=== PATIENT | male | born 1975 | race Caucasian/White ===

== ENCOUNTER 2020-09-30 15:23 | Outpatient (CLI) | payer BC, SELFPAY ==
--- NOTE | 2020-09-30 15:45 | USCV_ITS ---
Shivani Calderon Age: 45 Gender: M : 1975 Exam Date: 09/30/2020 15:26 Ordering Phys: Francisco Bolanos MD ([email or web address]) Technologist: Kirill Cross Exam Location: [facility] – [place] Indication: MVP BP: 140 / 85 HR: 43 Rhythm: Sinus Technical Quality: Good MEASUREMENTS (Male / Female) Normal Values 2D ECHO LV Diastolic Diameter PLAX 5.5 cm 4.2 - 5.9 / 3.9 - 5.3 cm LV Systolic Diameter PLAX 4.2 cm IVS Diastolic Thickness 1.2 cm 0.6 - 1.0 / 0.6 - 0.9 cm IVS Systolic Thickness 1.1 cm LVPW Diastolic Thickness 1.5 cm 0.6 - 1.0 / 0.6 - 0.9 cm LVPW Systolic Thickness 1.6 cm LVOT Diameter 2.2 cm LV Ejection Fraction 2D Teich 46.3 % LV Ejection Fraction MOD 2C 61.2 % LV Ejection Fraction 2C AL 60.4 % LA Diameter 5.8 cm LA Width 6.0 cm LA Height 5.3 cm RA Width 3.4 cm RA Height 3.7 cm Aorta at Sinotubular Diameter 2.8 cm M-MODE LV Diastolic Diameter MM 8.1 cm 4.2 - 5.9 / 3.9 - 5.3 cm LV Systolic Diameter MM 5.2 cm LV Ejection Fraction MM Teich 62.7 % IVS Diastolic Thickness MM 1.3 cm 0.6 - 1.0 / 0.6 - 0.9 cm IVS Systolic Thickness MM 1.7 cm LVPW Diastolic Thickness MM 1.7 cm 0.6 - 1.0 / 0.6 - 0.9 cm LVPW Systolic Thickness MM 1.9 cm RV Diastolic Diameter MM 2.5 cm Aortic Annulus Diameter 3.7 cm LA Ao Ratio MM 1.7 MV E Point Septal Separation 0.9 cm DOPPLER AV Peak Velocity 93.0 cm/s LVOT Peak Velocity 79.3 cm/s AV Area Cont Eq vti 3.5 cm squared AV Area Cont Eq pk 3.1 cm squared MV E' Velocity 19.0 cm/s TR Peak Velocity 286.0 cm/s TR Peak Gradient 32.7 mmHg TV Peak E Velocity 100.0 cm/s Right Atrial Pressure 3.0 mmHg Pulmonary Artery Systolic Pressu 35.7 mmHg FINDINGS Left Ventricle Normal left ventricular size and systolic function, EF 60 %. No regional wall motion abnormalities. Right Ventricle The right ventricle is normal in size and function. Right Atrium The right atrium is normal in size. Left Atrium Moderately increased left atrial size. In the atrial septum bulging to the right side Mitral Valve ppears to have some bileaflet prolapse. Possibly severe mitral regurgitation Aortic Valve No gross abnormalities noted . Tricuspid Valve No gross abnormalities noted . Pulmonic Valve Pulmonic valve not well visualized. Pericardium Normal pericardium without effusion. Aorta Normal ascending aorta dimension. CONCLUSIONS Normal left ventricular size and systolic function, EF 60 %. No regional wall motion abnormalities. Possibly severe mitral regurgitation Moderately increased left atrial size. Appears to have bileaflet prolapse The inter-atrial septum bulging to the right side. There is no pericardial effusion. There are no intracardiac masses. No previous study is available for comparison. Revised copy of the test results from 09/30/2020 Dr Francisco Bolanos MD [facility] (Electronically Signed) Final Date: 30 September 2020 18:00 Amended: 01 October 2020 13:15 C
== END 2020-09-30 15:24 | disposition home or self-care (01) ==
LOC: US 15:25
PROVIDERS: PCP Nurse Practitioner Family; Visit Provider Internal Medicine Cardiovascular Disease
DX: I34.1 Nonrheumatic mitral (valve) prolapse (principal)
CPT/HCPCS: 93306

== ENCOUNTER 2020-10-25 06:08 | Day surgery (SDC) | payer BC, SELFPAY ==
--- NOTE | 2020-10-25 06:18 | USCV_ITS ---
Shivani Calderon Age: 45 Gender: M : 1975 Exam Date: 10/25/2020 08:03 Ordering Phys: Francisco Bolanos MD ([email or web address]) Technologist: Kirill Cross Exam Location: [facility] – [place] Indication: MR BP: / HR: Rhythm: Sinus Technical Quality: MEASUREMENTS (Male / Female) Normal Values Medications IV propofol administered by the anesthesia service . No gross wall motion of normalities Complications None. Proc. Components The patient was brought to the RANDEE examination room in a fasting state after obtaining an informed consent. RANDEE was performed at multiple levels. The patient tolerated the procedure well and there were no complications. FINDINGS Left Ventricle Normal left ventricular size and systolic function, EF 65%.no regional wall motion abnormalities. Right Ventricle Normal right ventricular size and systolic function. Right Atrium Normal right atrial size. Left Atrium Moderately increased left atrial size. LA Appendage Is of normal size and contractility IA Septum Slightly bulging to the right side. There is no patent foramen ovale or ASD Mitral Valve Severe prolapse of the P1 and P2 and P3 scallops. Posterior leaflet appears to be flailing in some views. There was moderate prolapse of the A1 A2 scallops. Severe eccentric mitral regurgitation, with the irrigating jet directed anteriorly and encircling the left atrium. There was reversal of flow in the pulmonic vein. Aortic Valve Minimally thickened Tricuspid Valve Minimally thickened with no significant prolapse or regurgitation Pulmonic Valve Appears to be of normal morphology no significant stenotic lesions Pericardium No pericardial effusion. Aorta Normal aortic annulus size. CONCLUSIONS Severe mitral valve regurgitation Severe prolapse of the posterior mitral leaflet with some features of flailing. The P1, P2 and P3 scallops appears to be prolapsing. There is moderate prolapse of the A1 A2 scallops Moderately increased left atrial size. The interatrial septum appears to be bulging to the right side. No evidence of PFO or ASD by color-flow Doppler examination. Normal LV size and ejection fraction of 55%. No gross wall motion abnormalities noted. No intracardiac masses. No significant stenotic or regurgitant lesions in the other valves Dr Frnacisco Bolanos MD [facility] (Electronically Signed) Final Date: 25 October 2020 15:41 S
[2020-10-25 06:26] VITALS: BP 138/80; PULSE 65; RESP 16; TEMP 36.9; O2SAT 97; BMI 30.5
[2020-10-25 06:47] LABS: SARS Covid-2 Antigen Negative (Negative)
--- NOTE | 2020-10-25 06:53 | ANES.PREANE2 ---
Pre-Anesthetic Assessment Pre-Anesthetic Assessment: Height/Weight: Height 1.75 m Weight 93.894 kg Temp Pulse Resp BP Pulse Ox 98.4 F 65 16 138/80 97 10/25/20 06:26 10/25/20 06:26 10/25/20 06:26 10/25/20 06:26 10/25/20 06:26 Preop Diagnosis: Mitral regurg Proposed Procedure: Operation Date: 10/25/20 07:15 Proposed Procedures p RANDEE (Transesophageal Echocardiogram)(Not Applicable) - Francisco Bolanos MD Was Beta Xavi taken within 24 hours: Yes Last Intake: 22:00 Social: Social History: Tobacco (chew tobacco for couple min ) Packs per day: chew tobacco at 0400 couple min before stop Exam: Pre-Anes Outpt Exam: alert, oriented x 3, clear to auscultation bilaterally and regular rate & rhythm Airway: Submandibular: WNL Cervical ROM: WNL MP: 1 Dentition: Full Pulmonary: Pulmonary: Asthma (as child) and None reported CV/HEM: CV/HEM: HTN and Murmur : : None reported Hepatic: Hepatic: None reported GI: GI: GERD (occ food related) Metabolic: Metabolic: None reported Musc/skel: Musc/skel: None reported Neuropsych: Neuropsych: None reported Anesthetic Plan: ASA status: 3 Anesthesia: MAC Risk of > 500 ml blood loss (7ml/kg in children): No PFSH Anesthesia PFSH: Medical History Heart valve disease 08/05/2020 Patient has significant cardiac history that he has not followed up. Patient was seen by Dr. Bolanos in 2009 and Echo was done. Findings at that time included: Bi-leaflet prolapse of Mitral Valve Moderate Mitral regurgitation Mild Tricuspid and Pulmonic regurgitation Normal LV size with EF of 65% Mild bi-atrial enlargement Patient did not followup with care. Mitral regurgitation Mitral valve prolapse Umbilical hernia Surgical History History of appendectomy Family History Denies family history of Anesthesia complication Bleeding disorder Social History Smoking and tobacco status: never smoked Second hand smoke exposure: No Alcohol intake: never Adopted: No Caregiver/support person: Yes Lives independently: Yes Household members: spouse Housing: House Marital status: Current occupational status: employed Pets and animals: No History of recent travel: No Data Anesthesia Other Labs: Laboratory Results - last 48 hr 10/25/20 06:22 SARS-CoV-2 Ag (Rapid) Negative Cardiac Studies: No Data to Display
--- NOTE | 2020-10-25 08:05 | W.PM.OPSUD ---
Surgery/Procedure H&P Update DATE OF PROCEDURE: October 25, 2020 DATE H&P PERFORMED: 10/25/20 H&P UPDATE INFORMATION: I have reviewed H&P completed within last 30 days, I have examined patient prior to procedure and No changes to prior documentation PREOP DIAGNOSIS: Mitral regurg PLANNED PROCEDURE: Operation Date: 10/25/20 07:15 Proposed Procedures p RANDEE (Transesophageal Echocardiogram)(Not Applicable) - Francisco Bolanos MD
--- NOTE | 2020-10-25 08:06 | PM.HP ---
Providers/Chief Complaint Primary Care Provider: KEN Chen Chief Complaint: RANDEE History of Present Illness Shivani Calderon is a 45 year old male with a history of mitral valve prolapse and mitral regurgitation, had a recent echocardiogram. The echocardiogram revealed possibly severe mitral regurgitation. Moderately dilated left atrium. Appears to have bileaflet prolapse. The interatrial septum was bulging to the right side. A RANDEE was recommended to better evaluate the mitral valve prolapse and the mitral regurgitation. Review of Systems Narrative: CONSTITUTIONAL: No fever or chills. EYES: No blurring of vision or other visual disturbances lately. ENT: No hoarseness of voice, auditory disturbances or sore throat. CARDIOVASCULAR: As mentioned above. RESPIRATORY: No significant cough. GASTROINTESTINAL: No hematemesis or melena. GENITOURINARY: No dysuria or hematuria. INTEGUMENTARY: No skin rashes or history of skin cancer. NEURO: No transient ischemic attacks or amaurosis. PSYCHIATRIC: No history of psychosis or major depression. HEMATOLOGIC: No bleeding disorders or significant anemia. ENDOCRINE: No history of polyuria or polydipsia. MUSCULOSKELETAL: No recent joint pain or swelling. ALLERGY/IMMUNOLOGY: As mentioned above. Medications/Allergies Home Medications Medication Instructions Recorded Confirmed Last Taken Type calcium carbonate 600 mg calcium 600 mg PO DAILY 08/05/20 10/25/20 10/24/20 18:00 History (1,500 mg) tablet metoprolol tartrate 25 mg tablet 25 mg PO BID 30 Days #60 tab 09/04/20 10/25/20 10/24/20 18:00 Rx Allergies Allergy/AdvReac Type Severity Reaction Status Date / Time No Known Allergies Allergy Verified 08/30/20 09:20 PFSH Acute PFSH: Medical History Heart valve disease 08/05/2020 Patient has significant cardiac history that he has not followed up. Patient was seen by Dr. Bolanos in 2009 and Echo was done. Findings at that time included: Bi-leaflet prolapse of Mitral Valve Moderate Mitral regurgitation Mild Tricuspid and Pulmonic regurgitation Normal LV size with EF of 65% Mild bi-atrial enlargement Patient did not followup with care. Mitral regurgitation Mitral valve prolapse Umbilical hernia Surgical History History of appendectomy Family History Denies family history of Anesthesia complication Bleeding disorder Social History Smoking and tobacco status: never smoked Second hand smoke exposure: No Alcohol intake: never Adopted: No Caregiver/support person: Yes Lives independently: Yes Household members: spouse Housing: House Marital status: Current occupational status: employed Pets and animals: No History of recent travel: No Vitals/I&O/Wt Last Vital Signs Temp 98.4 F 10/25/20 06:26 Pulse 65 10/25/20 06:26 Resp 16 10/25/20 06:26 BP 138/80 10/25/20 06:26 Pulse Ox 97 10/25/20 06:26 Weight last 48 hrs Weight 207 lb Physical Exam Narrative: EXAM NARRATIVE: GENERAL: The patient is alert and oriented times three. Not in any acute distress. HEENT: No significant pallor, icterus or lymphadenopathy.Oral cavity: There are no mucous membrane lesions. NECK: Trachea appears to be central. No masses noted. No JVD or thyromegaly appreciated. RESPIRATORY: Chest is symmetrical. No intercostals muscle retraction or any accessory muscle activation. There is no chest wall tenderness. Breath sounds are heard bilaterally. No rales or rhonchi heard. No evidence of any consolidation. BREASTS: Deferred. HEART: The heart sounds are normal. No S3 or S4. Late systolic murmur grade 4/6 in the mitral area. No diastolic murmurs.. No pericardial rub ABDOMEN: No vessel pulsations or distention. No tenderness. No organomegaly appreciated. Bowel sounds are normally heard. : Deferred. RECTAL: Deferred. LYMPHATIC: No lymphadenopathy noted in the neck or groin. EXTREMITIES: No edema or cyanosis. No clubbing. Peripheral pulses are palpated in fairly good volume and amplitude MUSCULOSKELETAL: No acute joint deformities or swelling SKIN: There are no significant rashes or ecchymosis NEUROPSYCHIATRIC: The patient is alert and oriented x3. Appears to be in a good mood. No tremors or rigidity noted. A&P Assessment and plan (1) Mitral regurgitation: For better evaluation of the mitral valve and the regurgitation, a RANDEE would be appropriate. This was discussed the patient in detail. The risk of aspiration, soft tissue injury, esophageal/gastric perforation and other concomitant complications were explained in detail which is understood well and consented to proceed. Status: Acute Qualifiers: Cardiac valve disease etiology: nonrheumatic Qualified Code(s): I34.0 - Nonrheumatic mitral (valve) insufficiency (2) Elevated blood pressure reading: May continue on the current medications. The blood pressure is fairly in the normal range at home. Status: Acute (3) Mitral valve prolapse: Patient seems to have bileaflet prolapse based on the transthoracic echocardiogram. After reviewing the RANDEE, further recommendations will be made. Status: Acute Additional A&P Information It may require mitral valve intervention. Based on the RANDEE findings, further recommendations will be made. Attestations Medical Necessity Statement*: Patient be discharged home today after the procedure Coding Level of Care Code Acute Immunologist for [facility] Fwd Diagnoses Mitral regurgitation I34.0 Cardiac valve disease etiology: nonrheumatic Elevated blood pressure reading R03.0 Mitral valve prolapse I34.1
[2020-10-25 08:45] VITALS: BP 118/69; PULSE 75; RESP 16; O2SAT 100
--- NOTE | 2020-10-25 08:51 | ANE.PACU2 ---
Inpatient post-anesthesia follow up: Airway intact: Yes Vital signs: Temperature 98.4 F Pulse Rate 65 Respiratory Rate 16 Blood Pressure 138/80 Pulse Oximetry 97 Oxygen Delivery Me thod Room Air Oxygen Flow Rate Fraction of Inspir ed Oxygen Hydration adequate: Yes Nausea and vomiting: No Pain level: 1 Mental status: Baseline
[2020-10-25 09:00] VITALS: BP 117/61; PULSE 72; RESP 16; O2SAT 97
[2020-10-25 09:15] VITALS: BP 116/66; PULSE 63; RESP 18; O2SAT 99
[2020-10-25 09:30] VITALS: BP 120/64; PULSE 66; RESP 18; O2SAT 99
[2020-10-25 09:40] VITALS: BP 118/66; PULSE 64; RESP 18; O2SAT 99
== END 2020-10-25 09:50 | disposition home or self-care (01) ==
PROVIDERS: PCP Nurse Practitioner Family; Visit Provider Internal Medicine Cardiovascular Disease
PROC: (CPT 93312; principal; 2020-10-25 07:15)
DX: I34.0 Nonrheumatic mitral (valve) insufficiency (principal); I34.1 Nonrheumatic mitral (valve) prolapse; I10 Essential (primary) hypertension; E03.0 Congenital hypothyroidism with diffuse goiter; K21.9 Gastro-esophageal reflux disease without esophagitis
CPT/HCPCS: 12345; 36415; 87426; 93312; 93320; 93325; J2704; J7030

== ENCOUNTER → 2021-01-17 09:45 | Outpatient (BNVA) | payer BC, SELFPAY | PROVIDERS: PCP Nurse Practitioner Family; Visit Provider Nurse Practitioner Family | DX: I38 Endocarditis, valve unspecified (principal) | CPT/HCPCS: 85610 ==

== ENCOUNTER → 2021-01-22 12:58 | Outpatient (BNVA) | payer BC, SELFPAY | PROVIDERS: PCP Nurse Practitioner Family; Visit Provider Family Medicine | DX: I38 Endocarditis, valve unspecified (principal) | CPT/HCPCS: 85610 ==

== ENCOUNTER → 2021-01-29 08:20 | Outpatient (BNVA) | payer BC, SELFPAY | PROVIDERS: PCP Nurse Practitioner Family; Visit Provider Nurse Practitioner Family | DX: I38 Endocarditis, valve unspecified (principal) | CPT/HCPCS: 85610 ==

== ENCOUNTER → 2021-02-04 08:11 | Outpatient (BNVA) | payer BC, SELFPAY | PROVIDERS: PCP Nurse Practitioner Family; Visit Provider Nurse Practitioner Family | DX: I38 Endocarditis, valve unspecified (principal) | CPT/HCPCS: 85610 ==

== ENCOUNTER → 2021-02-12 08:19 | Outpatient (BNVA) | payer BC, SELFPAY | PROVIDERS: PCP Nurse Practitioner Family; Visit Provider Nurse Practitioner Family | DX: I38 Endocarditis, valve unspecified (principal) | CPT/HCPCS: 85610 ==

== ENCOUNTER → 2021-02-26 08:07 | Outpatient (BNVA) | payer BC, SELFPAY | PROVIDERS: PCP Nurse Practitioner Family; Visit Provider Nurse Practitioner Family | DX: I38 Endocarditis, valve unspecified (principal) | CPT/HCPCS: 85610 ==

== ENCOUNTER → 2021-04-09 08:09 | Outpatient (BNVA) | payer BC, SELFPAY | PROVIDERS: PCP Nurse Practitioner Family; Visit Provider Internal Medicine Cardiovascular Disease | DX: I34.1 Nonrheumatic mitral (valve) prolapse (principal); I48.91 Unspecified atrial fibrillation | CPT/HCPCS: 85610 ==

== ENCOUNTER → 2021-04-16 08:22 | Outpatient (BNVA) | payer BC, SELFPAY | PROVIDERS: PCP Nurse Practitioner Family; Visit Provider Internal Medicine Cardiovascular Disease | DX: I48.19 Other persistent atrial fibrillation (principal); D69.9 Hemorrhagic condition, unspecified | CPT/HCPCS: 85610 ==

== ENCOUNTER → 2021-04-24 08:32 | Outpatient (BNVA) | payer BC, SELFPAY | PROVIDERS: PCP Nurse Practitioner Family; Visit Provider Nurse Practitioner Family | DX: I48.19 Other persistent atrial fibrillation (principal) | CPT/HCPCS: 85610 ==

== ENCOUNTER → 2021-05-01 16:47 | Outpatient (BNVA) | payer BC, SELFPAY | PROVIDERS: PCP Nurse Practitioner Family; Visit Provider Nurse Practitioner Family | DX: I48.19 Other persistent atrial fibrillation (principal) | CPT/HCPCS: 85610 ==

== ENCOUNTER → 2021-05-21 14:41 | Outpatient (BNVA) | payer BC, SELFPAY | PROVIDERS: PCP Nurse Practitioner Family; Visit Provider Internal Medicine Cardiovascular Disease | DX: I10 Essential (primary) hypertension (principal); R07.9 Chest pain, unspecified; I48.19 Other persistent atrial fibrillation; R03.0 Elevated blood-pressure reading, without diagnosis of hypertension; Z79.01 Long term (current) use of anticoagulants | CPT/HCPCS: 85610 ==

== ENCOUNTER → 2021-12-04 16:23 | Outpatient (BNVA) | payer BC, SELFPAY | PROVIDERS: PCP Nurse Practitioner Family; Visit Provider Internal Medicine Cardiovascular Disease | DX: I48.19 Other persistent atrial fibrillation (principal); I10 Essential (primary) hypertension; I38 Endocarditis, valve unspecified; I34.1 Nonrheumatic mitral (valve) prolapse; R03.0 Elevated blood-pressure reading, without diagnosis of hypertension; G89.18 Other acute postprocedural pain; K21.9 Gastro-esophageal reflux disease without esophagitis | CPT/HCPCS: 85610 ==

== ENCOUNTER → 2021-12-19 10:08 | Outpatient (BNVA) | payer BC, SELFPAY | PROVIDERS: PCP Nurse Practitioner Family; Visit Provider Internal Medicine Cardiovascular Disease | DX: I48.91 Unspecified atrial fibrillation (principal) | CPT/HCPCS: 80053; 80061; 81003; 82306; 82728; 83036; 83550; 83921; 84443; 85025; 85610; 87086; G0103 ==

== ENCOUNTER → 2021-12-22 16:35 | Outpatient (BNVA) | payer BC, SELFPAY | PROVIDERS: PCP Nurse Practitioner Family; Visit Provider Internal Medicine Cardiovascular Disease | DX: I48.91 Unspecified atrial fibrillation (principal) | CPT/HCPCS: 85610 ==

== ENCOUNTER → 2021-12-30 16:40 | Outpatient (BNVA) | payer BC, SELFPAY | PROVIDERS: PCP Nurse Practitioner Family; Visit Provider Nurse Practitioner Family | DX: I48.91 Unspecified atrial fibrillation (principal) | CPT/HCPCS: 85610 ==

== ENCOUNTER → 2021-12-31 09:52 | Outpatient (BNVA) | payer BC, SELFPAY | PROVIDERS: PCP Nurse Practitioner Family; Visit Provider Nurse Practitioner Family | DX: N39.0 Urinary tract infection, site not specified (principal); I48.91 Unspecified atrial fibrillation; R31.9 Hematuria, unspecified; Z79.01 Long term (current) use of anticoagulants | CPT/HCPCS: 81003 ==

== ENCOUNTER → 2022-01-21 09:22 | Outpatient (BNVA) | payer BC, SELFPAY | PROVIDERS: PCP Nurse Practitioner Family; Visit Provider Internal Medicine Cardiovascular Disease | DX: Z79.01 Long term (current) use of anticoagulants (principal) | CPT/HCPCS: 85610 ==

== ENCOUNTER → 2022-06-11 16:40 | Outpatient (BNVA) | payer BC, SELFPAY | PROVIDERS: PCP Nurse Practitioner Family; Visit Provider Internal Medicine Cardiovascular Disease | DX: Z79.01 Long term (current) use of anticoagulants (principal) | CPT/HCPCS: 85610 ==

== ENCOUNTER → 2022-06-12 10:15 | Outpatient (BNVA) | payer BC, SELFPAY | PROVIDERS: PCP Nurse Practitioner Family; Visit Provider Nurse Practitioner Family | DX: R10.11 Right upper quadrant pain (principal); R31.9 Hematuria, unspecified | CPT/HCPCS: 81000; 88112 ==

== ENCOUNTER → 2022-06-18 16:40 | Outpatient (BNVA) | payer BC, SELFPAY | PROVIDERS: PCP Nurse Practitioner Family; Visit Provider Internal Medicine Cardiovascular Disease | DX: Z79.01 Long term (current) use of anticoagulants (principal) | CPT/HCPCS: 85610 ==

== ENCOUNTER 2022-07-13 11:25 | Outpatient (CLI) | payer BC, SELFPAY ==
[2022-07-13] MEDS: iohexol 350 mg/mL 100 mL Btl IV (12:30)
--- NOTE | 2022-07-13 13:00 | CT_ITS ---
WS: [id number] CT ABDOMEN PELVIS TECHNIQUE: Contrast-enhanced CT of the abdomen and pelvis with coronal and sagittal reformatted image s. CLINICAL INFORMATION: R10.11 - Right upper quadrant pain COMPARISON: None. DLP: 1290.[address] scans at [facility] use at least one of these dose optimization techniques: automated e xposure control; mA and/or kV adjustment per patient size (includes targeted exams where dose is matc hed to clinical indication); or iterative reconstruction. FINDINGS: Mild diffuse fatty infiltration liver. 2 small hepatic cysts or hemangiomas RIGHT hepatic lobe measur ing 7-9 mm. Normal portal vein and splenic vein. Cardiomegaly. Sternotomy. Lung bases are well aerate d. Normal spleen. Normal GE junction. Mild fatty atrophy of the pancreas. Normal caliber abdominal ao rta. Celiac and SMA are patent. Adrenal glands are normal. Normal renal parenchymal enhancement. No h ydronephrosis. Obstructing calculus at the RIGHT UVJ measuring 4.7 mm. Mild RIGHT ureterectasis. Mild RIGHT hydronephrosis. Normal renal parenchymal enhancement bilaterally . Prostate calcification. Prominent prostate measuring 4.0 CM. Normal sigmoid colon. No evidence of hig h-grade small or large bowel obstruction. Fat-containing umbilical hernia. No periaortic or pelvic ly mphadenopathy. CT/CT abdomen pelvis w con* [id number] IMPRESSION: 1. 4.7 mm RIGHT UVJ calculus with mild RIGHT ureterectasis. Minimal RIGHT hydr onephrosis. 2. Normal renal parenchymal enhancement bilaterally. 3. Prominent prostate measuring 4.0 CM. Recommend correlation PSA. 4. No other acute findings.
== END 2022-07-13 11:26 | disposition home or self-care (01) ==
LOC: RAD 11:26
PROVIDERS: PCP Nurse Practitioner Family; Visit Provider Nurse Practitioner Family
DX: R31.9 Hematuria, unspecified (principal); N13.4 Hydroureter; N40.0 Benign prostatic hyperplasia without lower urinary tract symptoms
CPT/HCPCS: 74177

== ENCOUNTER → 2022-07-15 16:51 | Outpatient (BNVA) | payer BC, SELFPAY | PROVIDERS: PCP Nurse Practitioner Family; Visit Provider Internal Medicine Cardiovascular Disease | DX: Z79.01 Long term (current) use of anticoagulants (principal) | CPT/HCPCS: 85610 ==

== ENCOUNTER 2022-07-16 13:00 | Outpatient (CLI) | payer BC, SELFPAY ==
--- NOTE | 2022-07-16 13:06 | XR_ITS ---
WS: [id number] KUB, AP view, 07/16/2022 Clinical Data: STONES Comparison: None. Findings: No abnormal intraabdominal masses or calcifications are seen. There is no dilatated small bowel or ev idence of obstruction. There is a 0.6 cm calcification in the region of the right ureterovesical junction which could repres ent a calculus. There is moderate fecal material in the descending colon. XR/XR KUB [id number] Impression: Possible right ureteral vesicle junction calculus.
== END 2022-07-16 13:01 | disposition home or self-care (01) ==
LOC: RAD 13:02
PROVIDERS: PCP Nurse Practitioner Family; Visit Provider Urology
DX: N20.1 Calculus of ureter (principal)
CPT/HCPCS: 74018; 81003

== ENCOUNTER 2022-07-22 08:25 | Day surgery (SDC) | payer BC, SELFPAY ==
[2022-07-20 08:26] VITALS: BMI 31.0
--- NOTE | 2022-07-20 08:43 | P.ANESASSM_ITS ---
Pre-Anesthetic Assessment Height/Weight: Height 1.75 m Weight 95.254 kg Preop Diagnosis: Mitral regurg Operation Date: 07/22/22 09:35 Proposed Procedures p CYSTOSCOPY RIGHT RETROGRADE URETEROSCOPY LASER STENT [id number] MODIFIER 26(Not Applicable) - Elias Palacios MD s Retrograde Pyelogram(Right) - MD seun Costello Ureteroscopy(Right) - MD seun Costello Laser Lithotripsy(Right) - Elias Palacios MD s Ureteral Stent Removal(Right) - Elias Palacios MD Familial anesthetic complications: vasovagal syncope with IV insertion Social No alcohol and No tobacco Exam alert, oriented x 3, clear to auscultation bilaterally and regular rate & rhythm Airway Mallampati: Class III Dentition: full Pulmonary None reported CV/HEM Atrial Fibrillation and Hypertension mitral valve repair (1.5 years ago), no SOB or Chest pain None reported Hepatic None reported GI None reported Metabolic None reported Musc/skel None reported Neuropsych None reported Anesthetic Plan ASA status: 3 Anesthesia: General Risk of > 500 ml blood loss (7ml/kg in children): No Medications/Allergies Home Medications Medication Instructions Recorded Confirmed Last Taken Type aspirin 81 mg tablet,delayed 81 mg PO DAILY 02/27/21 07/20/22 Unknown History release (Adult Aspirin Regimen) warfarin 2.5 mg tablet 2.5 mg PO DAILY 30 days #30 tabs 04/07/21 07/20/22 Unknown Rx famotidine 20 mg tablet 20 mg PO DAILY 05/21/21 07/20/22 Unknown History amiodarone 200 mg tablet See Rx Instructions .Route 01/21/22 07/20/22 Unknown Rx .COMPLEX #90 tabs losartan 25 mg tablet See Rx Instructions .Route 01/21/22 07/20/22 Unknown Rx .COMPLEX #90 tabs warfarin 5 mg tablet See Rx Instructions .Route 01/21/22 07/20/22 Unknown Rx .COMPLEX #90 tabs metoprolol tartrate 25 mg tablet 12.5 mg PO BID 06/04/22 07/20/22 Unknown History Allergies Allergy/AdvReac Type Severity Reaction Status Date / Time No Known Allergies Allergy Verified 07/16/22 14:31 [facility] Anesthesia Medical History Acute UTI Chronic anticoagulation GERD (gastroesophageal reflux disease) Heart valve disease 08/05/2020 Patient has significant cardiac history that he has not followed up. Patient was seen by Dr. Bolanos in 2009 and Echo was done. Findings at that time included: Bi-leaflet prolapse of Mitral Valve Moderate Mitral regurgitation Mild Tricuspid and Pulmonic regurgitation Normal LV size with EF of 65% Mild bi-atrial enlargement Patient did not followup with care. Mitral regurgitation Mitral valve prolapse Post-op pain Umbilical hernia Surgical History H/O mitral valve repair History of appendectomy Family History Father Diabetes Grandmother Diabetes Family/Other Stroke Mother Healthy adult Denies family history of CAD (coronary artery disease) Clotting disorder Dementia Chronic kidney disease (CKD) Suicide Anesthesia complication Bleeding disorder Lung disease Cancer Social History Smoking and tobacco status: never smoked Second hand smoke exposure: No Alcohol intake: current Alcohol intake frequency: holidays/special occasions only Adopted: No Caregiver/support person: Yes Lives independently: Yes Household members: spouse Housing: House Marital status: Current occupational status: employed Pets and animals: No History of recent travel: No Data Anesthesia Cardiac Studies: Echocardiogram Ultrasound 09/30/20 Transesophageal Echocardiogram 10/25/20
[2022-07-20 08:45] LABS: Basophils % 0.6 %; Eosinophils # 0.1 10^3/uL (0.0-0.8); Eosinophils % 2.1 %; Hematocrit 42.1 % (42.0-52.0); Hemoglobin 13.9 g/dL (11.7-16.6); Lymphocytes # 1.5 10^3/uL (0.8-4.8); Lymphocytes % 27.9 %; Mean Corpuscular Hemoglobin 30.3 pg (28.0-34.0); Mean Corpuscular Volume 91.9 fl (80-94); Mean Platelet Volume 11.1 fL (7.4-10.4); Monocytes # 0.3 10^3/uL (0.2-0.9); Monocytes % 5.4 %; Neutrophils # 3.31 10^3/uL (1.8-7.7); Neutrophils % 63.8 %; Nucleated Red Blood Cells % 0 %; Platelet Count 202 10^3/cmm (130-400); Red Blood Count 4.58 10^6/uL (4.1-5.3); Red Cell Distribution Width 12.2 % (12.1-15.1); White Blood Count 5.2 10^3/uL (4.0-10.0)
--- NOTE | 2022-07-20 08:53 | P.ANESASSM_ITS ---
Pre-Anesthetic Assessment Height/Weight: Height 1.75 m Weight 95.254 kg Preop Diagnosis: Mitral regurg Operation Date: 07/22/22 09:35 Proposed Procedures p CYSTOSCOPY RIGHT RETROGRADE URETEROSCOPY LASER STENT [id number] MODIFIER 26(Not Applicable) - Elias Palacios MD s Retrograde Pyelogram(Right) - MD seun Costello Ureteroscopy(Right) - MD seun Costello Laser Lithotripsy(Right) - Elias Palacios MD s Ureteral Stent Removal(Right) - Elias Palacios MD Medications/Allergies Home Medications Medication Instructions Recorded Confirmed Last Taken Type aspirin 81 mg tablet,delayed 81 mg PO DAILY 02/27/21 07/20/22 Unknown History release (Adult Aspirin Regimen) warfarin 2.5 mg tablet 2.5 mg PO DAILY 30 days #30 tabs 04/07/21 07/20/22 Unknown Rx famotidine 20 mg tablet 20 mg PO DAILY 05/21/21 07/20/22 Unknown History amiodarone 200 mg tablet See Rx Instructions .Route 01/21/22 07/20/22 Unknown Rx .COMPLEX #90 tabs losartan 25 mg tablet See Rx Instructions .Route 01/21/22 07/20/22 Unknown Rx .COMPLEX #90 tabs warfarin 5 mg tablet See Rx Instructions .Route 01/21/22 07/20/22 Unknown Rx .COMPLEX #90 tabs metoprolol tartrate 25 mg tablet 12.5 mg PO BID 06/04/22 07/20/22 Unknown History Allergies Allergy/AdvReac Type Severity Reaction Status Date / Time No Known Allergies Allergy Verified 07/16/22 14:31 [facility] Anesthesia Medical History Acute UTI Chronic anticoagulation GERD (gastroesophageal reflux disease) Heart valve disease 08/05/2020 Patient has significant cardiac history that he has not followed up. Patient was seen by Dr. Bolanos in 2009 and Echo was done. Findings at that time included: Bi-leaflet prolapse of Mitral Valve Moderate Mitral regurgitation Mild Tricuspid and Pulmonic regurgitation Normal LV size with EF of 65% Mild bi-atrial enlargement Patient did not followup with care. Mitral regurgitation Mitral valve prolapse Post-op pain Umbilical hernia Surgical History H/O mitral valve repair History of appendectomy Family History Father Diabetes Grandmother Diabetes Family/Other Stroke Mother Healthy adult Denies family history of CAD (coronary artery disease) Clotting disorder Dementia Chronic kidney disease (CKD) Suicide Anesthesia complication Bleeding disorder Lung disease Cancer Social History Smoking and tobacco status: never smoked Second hand smoke exposure: No Alcohol intake: current Alcohol intake frequency: holidays/special occasions only Adopted: No Caregiver/support person: Yes Lives independently: Yes Household members: spouse Housing: House Marital status: Current occupational status: employed Pets and animals: No History of recent travel: No Data Anesthesia : 07/20/22 08:30 07/20/22 08:30 Short CBC 07/20/22 Range/Units 08:30 WBC 5.2 (4.0-10.0) 10^3/uL Hgb 13.9 (11.7-16.6) g/dL Hct 42.1 (42.0-52.0) % MCV 91.9 (80-94) fl Plt Count 202 (130-400) 10^3/cmm Neut % (Auto) 63.8 % Neut # (Auto) 3.31 (1.8-7.7) 10^3/uL Cardiac Studies: Echocardiogram Ultrasound 09/30/20 Transesophageal Echocardiogram 10/25/20
[2022-07-20 09:09] LABS: Anion Gap 11.5 (5-19); Blood Urea Nitrogen 20 mg/dL (6-20); Calcium 9.6 mg/dL (8.5-10.5); Carbon Dioxide 29 mmol/L (22-29); Chloride 105 mmol/L (98-107); Glomerular Filtration Rate 64.9 mL/min (90-130); Glucose 99 mg/dL (65-115); Osmolality Calculated 295 mOsm/kg (285-295); Potassium 4.5 mmol/L (3.5-5.1); Sodium 141 mmol/L (136-145)
--- NOTE | 2022-07-22 08:27 | XR_ITS ---
WS: [id number] Exam: XR KUB [id number] Date/Time of Exam: 07/22/2022 8:29 AM Reason For Exam: stone Comparison 07/16/2022. No bowel obstruction or free air. Previously noted right pelvic calcification is difficult to identif y on today's exam. No sign of organ enlargement. Normal bowel gas pattern. Regional bony elements are intact. Opaque debris in the large bowel. XR/XR KUB [id number] IMPRESSION: 1. No acute abdominal finding. 2. Previously described right pelvic calcification thought to represent a urete ral stone is difficult to identify on today's exam. It may be obscured by stool in the rectum.
--- NOTE | 2022-07-22 09:31 | PM.MISC ---
Miscellaneous Note Purpose of Documentation: Documentation for cancellation of surgery Note: Last night the patient voided a stone out. I requested that he still have a KUB this morning to confirm that the entire stone was gone. I reviewed his KUB and in fact the stone is gone and what he described his passing was equivalent to what was seen on the previous KUB. Surgery was canceled. Follow-up in clinic in 6 months with a KUB for routine stone surveillance
--- NOTE | 2022-07-22 09:34 | SUR.PREOP ---
patients surgery has been cancelled due to passing his stone.
== END 2022-07-22 10:26 | disposition home or self-care (01) ==
LOC: RAD 08:26 → OPS 08:40
PROVIDERS: Anesthesiology; PCP Nurse Practitioner Family; Visit Provider Urology
PROC: 0TJB8ZZ Inspection of Bladder, Via Natural or Artificial Opening Endoscopic (ICD-10-PCS; CPT 52000; principal; 2022-07-22 09:25)
PROC: (CPT 74420; 2022-07-22 09:25)
PROC: 0TJ98ZZ Inspection of Ureter, Via Natural or Artificial Opening Endoscopic (ICD-10-PCS; CPT 52351; 2022-07-22 09:25)
PROC: (CPT 52310; 2022-07-22 09:25)
DX: N20.0 Calculus of kidney (principal); I10 Essential (primary) hypertension; I48.91 Unspecified atrial fibrillation; K21.9 Gastro-esophageal reflux disease without esophagitis; Z79.82 Long term (current) use of aspirin; Z79.01 Long term (current) use of anticoagulants; Z53.9 Procedure and treatment not carried out, unspecified reason
CPT/HCPCS: 74018; 80048; 85025

== ENCOUNTER → 2023-07-06 08:59 | Outpatient (BNVA) | payer BC, SELFPAY | PROVIDERS: PCP Nurse Practitioner Family; Visit Provider Nurse Practitioner Family | DX: I48.91 Unspecified atrial fibrillation (principal) | CPT/HCPCS: 85610 ==

== ENCOUNTER → 2024-01-04 09:05 | Outpatient (BNVA) | payer BC, SELFPAY | PROVIDERS: PCP Nurse Practitioner Family; Visit Provider Nurse Practitioner Family | DX: I10 Essential (primary) hypertension (principal); Z79.01 Long term (current) use of anticoagulants; R10.11 Right upper quadrant pain; M62.08 Separation of muscle (nontraumatic), other site; K81.9 Cholecystitis, unspecified; Z79.899 Other long term (current) drug therapy | CPT/HCPCS: 80053; 80061; 81003; 83036; 84439; 84443; 84481; 85025 ==

== ENCOUNTER 2024-01-07 07:16 | Outpatient (CLI) | payer BC, SELFPAY ==
--- NOTE | 2024-01-07 07:30 | US_ITS ---
WS: [id number] Complete ABDOMINAL ULTRASOUND HISTORY: K81.9 - Cholecystitis, unspecified COMPARISON: None available. Technically difficult evaluation of the abdominal structures due to body habitus. Liver: 15.8 cm in length. Normal size with mild coarse echotexture. No mass identified. Portal Vein: Normal hepatopetal flow with monophasic waveform. Gallbladder: Abnormal gallbladder. Stone filled gallbladder with shadowing. Gallbladder wall 3 mm. CBD: 0.3 cm Pancreas: Completely obscured by bowel gas. Right kidney: 11.8 cm x 4.8 x 5.9 cm. Cortex:1.0 cm. Normal size and echogenicity. No hydronephrosis or mass. Left kidney: 11.0 cm x 4.5 cm x 5.2 cm. Cortex: 1.1 cm. Normal size and echogenicity. No hydronephrosis or mass. Spleen: Normal. Aorta and IVC: Unremarkable abdominal aorta and IVC. Impression: 1. Cholelithiasis. Stone filled gallbladder. No acute cholecystitis. 2. Normal bile duct. 3. Mild hepatic steatosis. 4. No renal obstruction.
== END 2024-01-07 07:17 | disposition home or self-care (01) ==
LOC: RAD 07:16
PROVIDERS: PCP Nurse Practitioner Family; Visit Provider Nurse Practitioner Family
DX: K80.20 Calculus of gallbladder without cholecystitis without obstruction (principal); R10.11 Right upper quadrant pain
CPT/HCPCS: 76700

== ENCOUNTER → 2024-01-21 10:18 | Outpatient (BNVA) | payer BC, SELFPAY | PROVIDERS: PCP Nurse Practitioner Family; Visit Provider Nurse Practitioner Family | DX: Z79.01 Long term (current) use of anticoagulants (principal) | CPT/HCPCS: 85610 ==

== ENCOUNTER 2024-02-23 08:31 | Day surgery (SDC) | payer BC, SELFPAY ==
[2024-02-23 08:57] VITALS: BP 122/85; PULSE 69; RESP 18; TEMP 36.5; O2SAT 98
[2024-02-23] MEDS: sodium chloride 0.9% 1,000 ML 30 ML IV (08:58)
--- NOTE | 2024-02-23 09:19 | ECG_ITS ---
[facility] Test Date: 2024-02-23 Pat Name: Shivani Calderon Department: Room: Gender: Male [employer]: : 1975 Requested By: Queenie Arroyo Order Number: [id number] Nadia MD: Caesar Porras M.D. Measurements Intervals [place] Rate: 62 P: 37 TX: 281 QRS: -18 QRSD: 122 T: -30 QT: 435 QTc: 444 Interpretive Statements SINUS RHYTHM WITH FIRST DEGREE AV BLOCK MODERATE INTRAVENTRICULAR CONDUCTION DELAY [110+ ms QRS DURATION] MODERATE T-WAVE ABNORMALITY, CONSIDER ANTEROLATERAL ISCHEMIA [-0.1+ mV T-WAVE IN V3-V6] No previous ECG available for comparison Electronically Signed On 02-23-2024 10:35:50 CDT by Caesar Porras M.D. [email or web address]
--- NOTE | 2024-02-23 09:32 | P.HP_ITS ---
Providers/Chief Complaint 2 Primary Care Provider: KEN Chen Chief Complaint: Z12.11 History of Present Illness Shivani Calderon is a 48 year old male Review of Systems 2 General: Reports: 10 or more systems reviewed and unremarkable except in HPI and below Medications/Allergies Home Medications Medication Instructions Recorded Confirmed Last Taken Type aspirin 81 mg tablet,delayed 81 mg PO DAILY 02/27/21 02/21/24 02/21/24 History release (Adult Aspirin Regimen) warfarin 2.5 mg tablet 2.5 mg PO DAILY 30 days #30 tabs 04/07/21 02/21/24 02/16/24 Rx amiodarone 200 mg tablet 200 mg PO DAILY #90 tabs 01/11/23 02/21/24 02/21/24 Rx metoprolol tartrate 25 mg tablet 12.5 mg (1/2 x 25 mg) PO BID #90 04/23/23 02/21/24 02/23/24 Rx tabs warfarin 5 mg tablet 5 mg PO .follow weekly dosing #90 01/26/24 02/21/24 02/18/24 Rx tabs losartan 25 mg tablet 25 mg PO DAILY 02/21/24 02/21/24 02/21/24 History Allergies Allergy/AdvReac Type Severity Reaction Status Date / Time No Known Allergies Allergy Verified 01/21/24 09:24 PFSH Acute 2 PFSH: Medical History Diastasis recti Chronic anticoagulation warfarin- not compliant with INR checks Acute UTI GERD (gastroesophageal reflux disease) Post-op pain Mitral regurgitation Mitral valve prolapse Umbilical hernia Heart valve disease 08/05/2020 Patient has significant cardiac history that he has not followed up. Patient was seen by Dr. Bolanos in 2009 and Echo was done. Findings at that time included: Bi-leaflet prolapse of Mitral Valve Moderate Mitral regurgitation Mild Tricuspid and Pulmonic regurgitation Normal LV size with EF of 65% Mild bi-atrial enlargement Patient did not followup with care. Surgical History H/O mitral valve repair History of appendectomy Family History Father Diabetes Grandmother Diabetes Family/Other Stroke Mother Healthy adult Denies family history of CAD (coronary artery disease) Clotting disorder Dementia Chronic kidney disease (CKD) Suicide Anesthesia complication Bleeding disorder Lung disease Cancer Social History Smoking and tobacco/nicotine status: never used tobacco/nicotine Second hand smoke exposure: No Alcohol intake: current Alcohol intake frequency: holidays/special occasions only Substance/Drug Use: never Adopted: No Caregiver/support person: Yes Lives independently: Yes Household members: spouse Housing: House Marital status: Current occupational status: employed Pets and animals: No Vitals/I&O/Wt Last Vital Signs Temp 97.7 F 02/23/24 08:57 Pulse 69 02/23/24 08:57 Resp 18 02/23/24 08:57 BP 122/85 02/23/24 08:57 Pulse Ox 98 02/23/24 08:57 O2 Del Method Room Air 02/23/24 08:57 Weight last 48 hrs Weight 212 lb Data 02/23/24 09:26 02/23/24 09:26 A&P Assessment and plan (1) GERD (gastroesophageal reflux disease): Qualifiers: Esophagitis presence: esophagitis presence not specified Qualified Code(s): K21.9 - Gastro-esophageal reflux disease without esophagitis (2) Colon cancer screening: Plan EGD and colonoscopy Attestations 2 Medical Necessity Statement*: Home Coding Level of Care Code Acute Code for Chg Fwd Diagnoses Gastroesophageal reflux disease, unspecified whether esophagitis present K21.9 Esophagitis presence: esophagitis presence not specified Colon cancer screening Z12.11
[2024-02-23 09:37] LABS: Basophils % 0.5 %; Eosinophils % 0.6 %; Hematocrit 46.6 % (37-53); Lymphocytes # 1.2 10^3/uL (0.8-4.8); Lymphocytes % 19.4 %; Mean Corpuscular HGB Conc 34.1 g/dL (30-55); Mean Corpuscular Hemoglobin 30.1 pg (27-33); Mean Corpuscular Volume 88.1 fl (82-101); Mean Platelet Volume 10.7 fL (7.4-10.4); Monocytes # 0.4 10^3/uL (0.2-0.9); Monocytes % 6.1 %; Neutrophils # 4.65 10^3/uL (1.8-7.7); Neutrophils % 73.2 %; Nucleated Red Blood Cells % 0 %; Platelet Count 285 10^3/cmm (157-399); Red Blood Count 5.29 10^6/uL (3.85-5.65); Red Cell Distribution Width 12.2 % (12.1-15.1); White Blood Count 6.35 10^3/uL (3.29-11.43)
--- NOTE | 2024-02-23 09:44 | P.ANESASSM_ITS ---
Pre-Anesthetic Assessment Height/Weight: Height 1.75 m Weight 96.162 kg Temp Pulse Resp BP Pulse Ox O2 Del Method 97.7 F 69 18 122/85 98 Room Air 02/23/24 08:57 02/23/24 08:57 02/23/24 08:57 02/23/24 08:57 02/23/24 08:57 02/23/24 08:57 Operation Date: 02/23/24 09:45 Proposed Procedures p EGD(Not Applicable) - Ted Hodge DO s Colonoscopy(Not Applicable) - Ted Hodge DO Familial anesthetic complications: Vagal responses post-op twice on the way home in the car, hasn't had one of these vagal episodes since heart valve repaired. Instructed patient to go home and lay down for the remainder of the night to help avoid risk of falls. Will watch post-procedure for longer duration Was Beta Xavi taken within 24 hours: N/A Was Clonidine taken within 24 hours: N/A Last intake: Intake Last Liquid Date 02/22/24 Last Liquid Time 22:30 Last Solid Date 02/22/24 Last Solid Time 12:00 Social No alcohol and No tobacco Exam alert, oriented x 3, clear to auscultation bilaterally and regular rate & rhythm Airway Mallampati: Class II Dentition: full CV/HEM Atrial Fibrillation and Hypertension Mitral valve annuloplasty ring, holding comadin. no need for lovenox bridge. Doing well since replacement - no symptoms, very active, deer hunts, good functional status GI Gastroesophageal Reflux Disease Anesthetic Plan ASA status: 3 Anesthesia: MAC Risk of > 500 ml blood loss (7ml/kg in children): No Medications/Allergies Home Medications Medication Instructions Recorded Confirmed Last Taken Type aspirin 81 mg tablet,delayed 81 mg PO DAILY 02/27/21 02/21/24 02/21/24 History release (Adult Aspirin Regimen) warfarin 2.5 mg tablet 2.5 mg PO DAILY 30 days #30 tabs 04/07/21 02/21/24 02/16/24 Rx amiodarone 200 mg tablet 200 mg PO DAILY #90 tabs 01/11/23 02/21/24 02/21/24 Rx metoprolol tartrate 25 mg tablet 12.5 mg (1/2 x 25 mg) PO BID #90 04/23/23 02/21/24 02/23/24 Rx tabs warfarin 5 mg tablet 5 mg PO .follow weekly dosing #90 01/26/24 02/21/24 02/18/24 Rx tabs losartan 25 mg tablet 25 mg PO DAILY 02/21/24 02/21/24 02/21/24 History Allergies Allergy/AdvReac Type Severity Reaction Status Date / Time No Known Allergies Allergy Verified 01/21/24 09:24 Current Medications Generic Name Dose Route Start Last Admin Trade Name Freq PRN Reason Stop Dose Admin Sodium Chloride 1,000 mls @ 30 mls/hr 02/23/24 08:45 02/23/24 08:58 Sodium Chloride 0.9% IV 02/24/24 08:44 30 mls/hr .Q24H DANIELLA Administration PFSH Anesthesia Medical History Diastasis recti Chronic anticoagulation warfarin- not compliant with INR checks Acute UTI GERD (gastroesophageal reflux disease) Post-op pain Mitral regurgitation Mitral valve prolapse Umbilical hernia Heart valve disease 08/05/2020 Patient has significant cardiac history that he has not followed up. Patient was seen by Dr. Bolanos in 2009 and Echo was done. Findings at that time included: Bi-leaflet prolapse of Mitral Valve Moderate Mitral regurgitation Mild Tricuspid and Pulmonic regurgitation Normal LV size with EF of 65% Mild bi-atrial enlargement Patient did not followup with care. Surgical History H/O mitral valve repair History of appendectomy Family History Father Diabetes Grandmother Diabetes Family/Other Stroke Mother Healthy adult Denies family history of CAD (coronary artery disease) Clotting disorder Dementia Chronic kidney disease (CKD) Suicide Anesthesia complication Bleeding disorder Lung disease Cancer Social History Smoking and tobacco/nicotine status: never used tobacco/nicotine Second hand smoke exposure: No Alcohol intake: current Alcohol intake frequency: holidays/special occasions only Substance/Drug Use: never Adopted: No Caregiver/support person: Yes Lives independently: Yes Household members: spouse Housing: House Marital status: Current occupational status: employed Pets and animals: No Data Anesthesia 02/23/24 09:26 02/23/24 09:26 Short CBC 02/23/24 Range/Units 09:26 WBC 6.35 (3.29-11.43) 10^3/uL Hgb 15.90 (11.27-16.99) g/dL Hct 46.6 (37-53) % MCV 88.1 (82-101) fl Plt Count 285 (157-399) 10^3/cmm Neut % (Auto) 73.2 % Neut # (Auto) 4.65 (1.8-7.7) 10^3/uL Cardiac Studies: 2 Echocardiogram Ultrasound 09/30/20 Transesophageal Echocardiogram 10/25/20
[2024-02-23 09:48] LABS: INR 1.24 (0.8-1.2)
[2024-02-23 09:59] LABS: Alanine Aminotransferase 18 U/L (0-41); Albumin Level 4.2 g/dL (3.5-5.2); Alkaline Phosphatase 71 U/L (40-130); Aspartate Amino Transferase 18 U/L (0-40); Blood Urea Nitrogen 13 mg/dL (6-20); Calcium 9.8 mg/dL (8.5-10.5); Carbon Dioxide 23 mmol/L (22-29); Chloride 107 mmol/L (98-107); Creatinine Clr Calc Pharmacy 103.3528; Globulin 3.6 g/dL (1.3-4.6); Glomerular Filtration Rate 79.8 mL/min (90-130); Glucose 112 mg/dL (65-115); Osmolality Calculated 291 mOsm/kg (285-295); Sodium 140 mmol/L (136-145); Total Bilirubin 0.9 mg/dL (0.15-1.2); Total Protein 7.8 g/dL (6.6-8.7)
[2024-02-23 10:01] LABS: Anion Gap 14.1 (5-19); Potassium 4.1 mmol/L (3.5-5.1)
[2024-02-23 10:12] VITALS: BP 86/58; PULSE 61; RESP 12; TEMP 36.4; O2SAT 96
[2024-02-23 10:26] VITALS: BP 94/55; PULSE 62; RESP 16; O2SAT 94
--- NOTE | 2024-02-23 10:35 | ANE.PACU2 ---
Inpatient post-anesthesia follow up: Airway intact: Yes Vital signs: Temperature 97.6 F Pulse Rate 62 Respiratory Rate 16 Blood Pressure 94/55 Pulse Oximetry 94 Oxygen Delivery Me thod Room Air Oxygen Flow Rate Fraction of Inspir ed Oxygen Hydration adequate: Yes Nausea and vomiting: No Pain level: 1 Mental status: Baseline
== END 2024-02-23 10:57 | disposition home or self-care (01) ==
PROVIDERS: Anesthesiology; PCP Nurse Practitioner Family; Visit Provider Surgery
PROC: 0DJ08ZZ Inspection of Upper Intestinal Tract, Via Natural or Artificial Opening Endoscopic (ICD-10-PCS; CPT 43235; principal; 2024-02-23 09:45)
PROC: 0DJD8ZZ Inspection of Lower Intestinal Tract, Via Natural or Artificial Opening Endoscopic (ICD-10-PCS; CPT 45378; 2024-02-23 09:45)
DX: Z12.11 Encounter for screening for malignant neoplasm of colon (principal); K29.50 Unspecified chronic gastritis without bleeding; D12.4 Benign neoplasm of descending colon; Z79.82 Long term (current) use of aspirin; Z79.01 Long term (current) use of anticoagulants; K21.9 Gastro-esophageal reflux disease without esophagitis; I48.91 Unspecified atrial fibrillation; I10 Essential (primary) hypertension
CPT/HCPCS: 43239; 45385; 80053; 85025; 85610; 88305; 88342; 93005; J2704; J7030

== ENCOUNTER 2024-02-24 05:52 | Day surgery (SDC) | payer BC, SELFPAY ==
[2024-02-24] VITALS (9 sets, daily range): BP systolic 104–121; BP diastolic 66–75; PULSE 60–65; RESP 17–18; TEMP 36.1–36.3; O2SAT 91–100; BMI 30.1
[2024-02-24] MEDS: sodium chloride 0.9% 1,000 ML 30 ML IV (06:30)
--- NOTE | 2024-02-24 06:48 | PM.HP ---
Providers/Chief Complaint Primary Care Provider: KEN Chen Chief Complaint: K80.20 History of Present Illness Shivani Calderon is a 48 year old male Review of Systems General: Reports: 10 or more systems reviewed and unremarkable except in HPI and below Medications/Allergies Home Medications Medication Instructions Recorded Confirmed Last Taken Type aspirin 81 mg tablet,delayed 81 mg PO DAILY 02/27/21 02/24/24 02/21/24 History release (Adult Aspirin Regimen) warfarin 2.5 mg tablet 2.5 mg PO DAILY 30 days #30 tabs 04/07/21 02/23/24 02/18/24 Rx amiodarone 200 mg tablet 200 mg PO DAILY #90 tabs 01/11/23 02/23/24 02/23/24 Rx metoprolol tartrate 25 mg tablet 12.5 mg (1/2 x 25 mg) PO BID #90 04/23/23 02/24/24 02/24/24 Rx tabs warfarin 5 mg tablet 5 mg PO .follow weekly dosing #90 01/26/24 02/23/24 02/18/24 Rx tabs losartan 25 mg tablet 25 mg PO DAILY #90 tabs 02/23/24 02/24/24 02/23/24 Rx pantoprazole 40 mg tablet,delayed 40 mg PO QAM #90 tabs 02/23/24 02/24/24 02/24/24 Rx release (Protonix) Allergies Allergy/AdvReac Type Severity Reaction Status Date / Time No Known Allergies Allergy Verified 01/21/24 09:24 PFSH Acute PFSH: Medical History Diastasis recti Chronic anticoagulation warfarin- not compliant with INR checks Acute UTI GERD (gastroesophageal reflux disease) Post-op pain Mitral regurgitation Mitral valve prolapse Umbilical hernia Heart valve disease 08/05/2020 Patient has significant cardiac history that he has not followed up. Patient was seen by Dr. Bolanos in 2009 and Echo was done. Findings at that time included: Bi-leaflet prolapse of Mitral Valve Moderate Mitral regurgitation Mild Tricuspid and Pulmonic regurgitation Normal LV size with EF of 65% Mild bi-atrial enlargement Patient did not followup with care. Surgical History H/O mitral valve repair History of appendectomy Family History Father Diabetes Grandmother Diabetes Family/Other Stroke Mother Healthy adult Denies family history of CAD (coronary artery disease) Clotting disorder Dementia Chronic kidney disease (CKD) Suicide Anesthesia complication Bleeding disorder Lung disease Cancer Social History Smoking and tobacco/nicotine status: never used tobacco/nicotine Second hand smoke exposure: No Alcohol intake: current Alcohol intake frequency: holidays/special occasions only Substance/Drug Use: never Adopted: No Caregiver/support person: Yes Lives independently: Yes Household members: spouse Housing: House Marital status: Current occupational status: employed Pets and animals: No Vitals/I&O/Wt Last Vital Signs Temp 97.3 F L 02/24/24 06:12 Pulse 60 02/24/24 06:12 Resp 17 02/24/24 06:12 BP 119/68 02/24/24 06:12 Pulse Ox 96 02/24/24 06:12 O2 Del Method Room Air 02/24/24 06:14 Weight last 48 hrs Weight 204 lb A&P Assessment and plan (1) Symptomatic cholelithiasis: Plan Laparoscopic cholecystectomy Attestations Medical Necessity Statement*: Home Coding Level of Care Code Acute Code for Chg Fwd Diagnoses Symptomatic cholelithiasis K80.20
--- NOTE | 2024-02-24 06:57 | ANES.PAUD2 ---
Pre-Anesthetic Update Pre-Anesthetic Assessment: Date of Surgery/Procedure: 02/24/24 Proposed Procedure: Operation Date: 02/24/24 07:45 Proposed Procedures p [id number] lap emeka K80.20(Not Applicable) - Ted Hodge, DO Any changes to Pre-Anesthetic Assessment?: No Last Intake: Intake Last Liquid Date 02/23/24 Last Liquid Time 18:00 Last Solid Date 02/23/24 Last Solid Time 18:00 Vitals: Temperature 97.3 F L 02/24/24 06:12 Temperature Source Temporal Artery S can 02/24/24 06:12 Pulse Rate 60 02/24/24 06:12 Respiratory Rate 17 02/24/24 06:12 Blood Pressure 119/68 02/24/24 06:12 Blood Pressure Cherise n 85 02/24/24 06:12 Pulse Oximetry 96 02/24/24 06:12 Oxygen Delivery Me thod Room Air 02/24/24 06:14 Exam: Pre-Anes Outpt Exam: alert, oriented x 3, clear to auscultation bilaterally and regular rate & rhythm Cardiac Studies: Echocardiogram Ultrasound 09/30/20 Transesophageal Echocardiogram 10/25/20
[2024-02-24] MEDS: ceFAZolin 2,000 MG in sodium chloride 0.9% (plus) 50 ML 100 MG IV (07:25)
[2024-02-24] MEDS: lidocaine-epi 2% PF 1:200,000 20 mL SDV XX (08:03)
--- NOTE | 2024-02-24 08:29 | P.OP_ITS ---
Operative Report Date of procedure: February 24, 2024 Surgeon: Ted Hodge DO Brief History: This is a very pleasant 48-year-old gentleman who presented my office with symptomatic cholelithiasis. Laparoscopic cholecystectomy was indicated. The risk benefits were explained and documented. Procedure: Preoperative diagnosis: Symptomatic cholelithiasis Postoperative diagnosis: Symptomatic cholelithiasis, cholecystitis Procedure performed: Laparoscopic cholecystectomy Surgeon: Dr. Ted Hodge DO Estimated blood loss: 5 mL Specimens: Gallbladder to pathology Complications: None apparent Description of procedure: Patient was wheeled into the operative room and placed on the OR table in a supine position. Abdomen was inspected prepped and draped in usual sterile fashion. Time-out was performed and all present were in agreement. A 15 blade scalp was used to make a stab incision in the left upper quadrant and intra- abdominal insufflation was achieved using a Veress needle. After localizing the tissue incisions were made and a 5 millimeter trocar was placed into the umbilicus as well as 2 in the right upper quadrant. A 12 millimeter trocar was placed in the epigastrium. Gallbladder was grasped and elevated. The triangle of Calot was carefully dissected using blunt dissection and electrocautery until the triangle of Calot clearly identified. The cystic duct was clipped proximally and double clipped distally. The duct was then ligated proximally. The duct was very large and the gallbladder was filled with numerous stones of various sizes. The cystic artery was doubly clipped and ligated. The gallbladder was then removed from the liver bed using electrocautery. The gallbladder was removed from the abdomen using an Endo-Catch bag through the epi gastric incision. Due to the size of the gallbladder and the stones, the epigastric incision had to be extended twice. The liver bed was inspected and no bleeding was seen. The abdomen was irrigated and suctioned. The epigastric incision was then closed at the fascia with an 0 Vicryl and Colt-Sarahy in a [id number] fashion. All ports removed. Skin was washed and dried. Incisions were closed with 4-0 Monocryl in a subcuticular interrupted fashion. Skin glue was applied. Patient tolerated the procedure well.
[2024-02-24] MEDS: meperidine 50 mg/mL INJ 12.5 MG IVP (09:37)
--- NOTE | 2024-02-24 09:44 | SUR.PHASEII ---
0922-Upon arrival to PhaseII patient was shivering and complaining of being cold and dry mouth. Order was obtained from Dr Arroyo to give demerol in Phase II.
[2024-02-24] MEDS: HYDROcodone-acetaminophen 7.5-325 mg Tablet 1 TAB PO (10:12)
--- NOTE | 2024-02-24 10:50 | ANE.PACU2 ---
Inpatient post-anesthesia follow up: Airway intact: Yes Vital signs: Temperature 97.2 F Pulse Rate 61 Respiratory Rate 17 Blood Pressure 105/75 Pulse Oximetry 98 Oxygen Delivery Me thod Room Air Oxygen Flow Rate Fraction of Inspir ed Oxygen Hydration adequate: Yes Nausea and vomiting: No Pain level: 1 Mental status: Baseline
== END 2024-02-24 10:25 | disposition home or self-care (01) ==
PROVIDERS: PCP Nurse Practitioner Family; Visit Provider Surgery
PROC: 0FT44ZZ Resection of Gallbladder, Percutaneous Endoscopic Approach (ICD-10-PCS; CPT 47562; principal; 2024-02-24 07:45)
DX: K80.10 Calculus of gallbladder with chronic cholecystitis without obstruction (principal); Z79.82 Long term (current) use of aspirin; Z79.01 Long term (current) use of anticoagulants
CPT/HCPCS: 47562; 88304; J0690; J1100; J1885; J2175; J2405; J2704; J2710; J3010; J3490; J7030

== ENCOUNTER → 2024-07-25 14:45 | Outpatient (BNVA) | payer BC, SELFPAY | PROVIDERS: PCP Nurse Practitioner Family; Visit Provider Nurse Practitioner Family | DX: Z98.890 Other specified postprocedural states (principal) | CPT/HCPCS: 85610 ==

== ENCOUNTER → 2024-08-11 13:14 | Outpatient (BNVA) | payer BC, SELFPAY | PROVIDERS: PCP Nurse Practitioner Family; Visit Provider Nurse Practitioner Family | DX: Z79.01 Long term (current) use of anticoagulants (principal) | CPT/HCPCS: 85610 ==

== ENCOUNTER → 2025-03-28 11:40 | Outpatient (BNVA) | payer BC, SELFPAY | PROVIDERS: PCP Nurse Practitioner Family; Visit Provider Internal Medicine Cardiovascular Disease | DX: Z79.01 Long term (current) use of anticoagulants (principal) | CPT/HCPCS: 85610 ==

== ENCOUNTER → 2025-06-26 11:07 | Outpatient (BNVA) | payer BC, SELFPAY | PROVIDERS: PCP Nurse Practitioner Family; Visit Provider Internal Medicine Cardiovascular Disease | DX: Z98.890 Other specified postprocedural states (principal); Z79.01 Long term (current) use of anticoagulants | CPT/HCPCS: 85610 ==